=== PATIENT | male | born 1945 | race Caucasian/White ===

== ENCOUNTER 2017-10-19 09:26 | Emergency (ER) | payer MEDICARE | END 2017-10-19 09:55 | disposition home or self-care (01) | LOC: MADERS 09:26 | DX: S40.811A Abrasion of right upper arm, initial encounter (principal); L03.113 Cellulitis of right upper limb; I10 Essential (primary) hypertension; E78.00 Pure hypercholesterolemia, unspecified; X58.XXXA Exposure to other specified factors, initial encounter | CPT/HCPCS: 99283 ==

== ENCOUNTER 2020-03-17 12:48 | Emergency (ER) | payer MEDICARE ==
[2020-03-17] MEDS ORDERED: Aspirin Chewable 81 MG TAB ONE (13:17)
[2020-03-17] MEDS ORDERED: Nitroglycerin 0.4 MG TAB 1 EACH ONE (13:17)
[2020-03-17] MEDS ORDERED: Sodium Chloride 0.9% 500 ML ONE (13:17)
--- NOTE | 2020-03-17 13:27 | RAD ---
RADIOGRAPH CHEST 1 VIEW: DATE: 03/17/2020 HISTORY: 74-year-old female with chest pain. FINDINGS: There is hyperinflation of the lungs, consistent with COPD. There is no evidence of air space density , pneumothorax, or pulmonary edema. The lateral costophrenic angles are excluded from the field of vi ew. There is no cardiomegaly. IMPRESSION: 1. No acute pulmonary findings. 2. Emphysema. jn [] POS: AH
[2020-03-17 13:37] LABS: Hemoglobin 14.8 g/dL (14.0-18.0); Mean Corpuscular Hemoglobin 28.1 pg (27.0-31.0); Mean Corpuscular Volume 87.7 fL (78.0-98.0); Mean Platelet Volume 7.3 fL (7.4-10.4); Platelet Count 168 thou/uL (130-400); RBC Distribution Width 16.3 % (11.5-14.5); Red Blood Cell (RBC) Count 5.27 mill/uL (4.70-6.10); White Blood Cell (WBC) Count 8.3 thou/uL (4.8-10.8)
[2020-03-17 13:38] LABS: Lymphocytes 28 % (21-51); MDiff Complete? YES; Monocytes 15 % (0-10); Neutrophil 57 % (42-75); Platelet Morphology Comment Appears Adequate; RBC Morphology Normal
[2020-03-17 13:39] LABS: ALT (SGPT) 15 U/L (8-55); AST (SGOT) 21 U/L (5-34); Albumin 4.4 g/dL (3.4-4.8); Alkaline Phosphatase 102 U/L (40-110); Anion Gap 16 mmol/L (10-20); BUN (Urea Nitrogen) 27 mg/dL (8.4-25.7); Bilirubin, Total 1.3 mg/dL (0.2-1.2); Calc. Creatinine Clearance 0 mL/min (70-130); Calcium 9.6 mg/dL (7.8-10.44); Carbon Dioxide 28 mmol/L (23-31); Chloride 97 mmol/L (98-107); Estimated GFR-MDRD 30; Globulin 3.8 g/dL (2.4-3.5); Glucose 101 mg/dL (83-110); Potassium 3.8 mmol/L (3.5-5.1); Protein, Total 8.2 g/dL (5.8-8.1); Sodium 137 mmol/L (136-145)
[2020-03-17] MEDS ORDERED: Morphine 4 MG/ML VIAL ONE (14:31)
== END 2020-03-17 15:09 | disposition short-term general hospital (02) ==
LOC: MADERS 12:48
DX: R07.9 Chest pain, unspecified (principal); I10 Essential (primary) hypertension; E78.5 Hyperlipidemia, unspecified; E78.00 Pure hypercholesterolemia, unspecified
CPT/HCPCS: 71045; 80053; 83880; 84484; 85025; 93005; 96361; 96374; J2270; J7030